=== PATIENT | male | born 1985 | race Caucasian/White ===

== ENCOUNTER 2017-01-11 20:08 | Emergency (ER) | payer MEDICAID ==
[~2017-01-11 20:08] MED LIST: KEFLEX500 MG PO; LOT1C TOP
[2017-01-11 21:07] VITALS: BP 167/111
== END 2017-01-11 21:07 | disposition home or self-care (01) ==
LOC: ED 20:08
DX: L03.116 Cellulitis of left lower limb (principal)
CPT/HCPCS: J0696

== ENCOUNTER 2018-03-12 07:58 | Emergency (ER) | payer MEDICAID ==
[~2018-03-12] VITALS: Ht 165.1 cm; Wt 159.7 kg
[2018-03-12 08:09] VITALS: Ht 165.1 cm; Wt 159.7 kg
[2018-03-12 09:48] VITALS: BP 125/80
== END 2018-03-12 09:48 | disposition home or self-care (01) ==
LOC: ED 07:58
DX: S39.012A Strain of muscle, fascia and tendon of lower back, initial encounter (principal); I10 Essential (primary) hypertension; X50.0XXA Overexertion from strenuous movement or load, initial encounter; Y93.H3 Activity, building and construction; Y92.89 Other specified places as the place of occurrence of the external cause; Y99.8 Other external cause status
CPT/HCPCS: 20552; J1885

== ENCOUNTER 2018-03-17 22:51 | Emergency (ER) | payer MEDICAID ==
[~2018-03-17] VITALS: Ht 165.1 cm; Wt 186.4 kg
[2018-03-17 23:11] VITALS: Ht 165.1 cm; Wt 186.4 kg
[2018-03-18 01:01] VITALS: BP 159/100
== END 2018-03-18 01:01 | disposition home or self-care (01) ==
LOC: ED 22:51
DX: L03.115 Cellulitis of right lower limb (principal)
CPT/HCPCS: J0696

== ENCOUNTER 2018-03-27 12:39 | Emergency (ER) | payer MEDICAID ==
[~2018-03-27] VITALS: Ht 165.1 cm; Wt 184.2 kg
[2018-03-27 13:11] VITALS: Ht 165.1 cm; Wt 184.2 kg
[2018-03-27 13:56] LABS: BASOPHIL % 0.9 % (0-2); PLATELET COUNT 187 x10^3mcL (130-400); RED CELL DISTRIBUTION WIDTH 13.7 % (11.5-14.5)
[2018-03-27 14:09] LABS: CALCIUM 9.1 mg/dL (8.5-10.1); CARBON DIOXIDE 31.9 mmol/L (21-32); CHLORIDE SERUM 103 mmol/L (98-107); CREATININE SERUM 0.6 mg/dL (0.7-1.3); GFR1 > 60 mL/min; GLUCOSE SERUM 135 mg/dL (74-106); POTASSIUM SERUM 3.5 mmol/L (3.5-5.1); SODIUM SERUM 138 mmol/L (136-145)
[2018-03-27 14:14] LABS: ALKALINE PHOSPHATASE 88 U/L (46-116); ALT/SGPT 72 U/L (16-63); AST/SGOT 46 U/L (15-37); BILIRUBIN TOTAL 0.6 mg/dL (0.20-1.00)
[2018-03-27 14:22] LABS: ALBUMIN 3.3 g/dL (3.4-5.0); TOTAL PROTEIN, SERUM 8.4 g/dL (6.4-8.2)
[2018-03-27 16:15] VITALS: BP 134/72
== END 2018-03-27 16:15 | disposition home or self-care (01) ==
LOC: ED 12:39
PROVIDERS: Emergency Medicine
DX: L03.115 Cellulitis of right lower limb (principal)
CPT/HCPCS: 36415; J1885; Q0092

== ENCOUNTER 2018-08-29 21:21 | Emergency (ER) | payer MEDICAID ==
[~2018-08-29] VITALS: Ht 165.1 cm; Wt 183.3 kg
[2018-08-29 21:27] VITALS: Ht 165.1 cm; Wt 183.3 kg
[2018-08-29 22:43] VITALS: BP 159/91
== END 2018-08-29 22:43 | disposition home or self-care (01) ==
LOC: ED 21:21
DX: L03.115 Cellulitis of right lower limb (principal)
CPT/HCPCS: 90715; J0696

== ENCOUNTER 2019-02-12 22:08 | Emergency (ER) | payer MEDICAID ==
[~2019-02-12] VITALS: Ht 167.6 cm; Wt 183.3 kg
[2019-02-12 22:29] VITALS: Ht 167.6 cm; Wt 183.3 kg
[2019-02-12 23:59] VITALS: BP 130/85
== END 2019-02-12 23:59 | disposition home or self-care (01) ==
LOC: ED 22:08
DX: R51 Headache (principal); M79.601 Pain in right arm; R03.0 Elevated blood-pressure reading, without diagnosis of hypertension

== ENCOUNTER 2019-07-13 19:56 | Emergency (ER) | payer MEDICAID ==
[~2019-07-13] VITALS: Ht 165.1 cm; Wt 182.3 kg
[2019-07-13 20:11] VITALS: Ht 165.1 cm; Wt 182.3 kg
[2019-07-13 21:52] VITALS: BP 167/92
== END 2019-07-13 21:52 | disposition home or self-care (01) ==
LOC: ED 19:56
DX: J32.9 Chronic sinusitis, unspecified (principal); J40 Bronchitis, not specified as acute or chronic
CPT/HCPCS: Q0092

== ENCOUNTER 2019-10-13 16:30 | Emergency (ER) | payer MEDICAID ==
[~2019-10-13] VITALS: Ht 165.1 cm; Wt 182.3 kg
[2019-10-13 16:40] VITALS: Ht 165.1 cm; Wt 182.3 kg
[2019-10-13 17:59] VITALS: BP 161/85
== END 2019-10-13 17:59 | disposition home or self-care (01) ==
LOC: ED 16:30
DX: L03.115 Cellulitis of right lower limb (principal); R03.0 Elevated blood-pressure reading, without diagnosis of hypertension
CPT/HCPCS: 82962

== ENCOUNTER 2020-04-28 18:57 | Emergency (ER) | payer MEDICAID ==
[~2020-04-28] VITALS: Ht 167.6 cm; Wt 180.1 kg
[2020-04-28 19:08] VITALS: BP 174/103; Ht 167.6 cm; Wt 180.1 kg
== END 2020-04-28 21:46 | disposition home or self-care (01) ==
LOC: ED 18:57
DX: I83.892 Varicose veins of left lower extremity with other complications (principal)